=== PATIENT | male | born 1950 | race Caucasian/White ===

== ENCOUNTER 2022-08-29 06:05 | Day surgery (SDC) | payer MEDICARE, SELFPAY ==
[2022-08-18 09:18] VITALS: BMI 26.6
[2022-08-29 06:20] VITALS: BP 140/80; PULSE 58; RESP 16; TEMP 36.4; O2SAT 100
--- NOTE | 2022-08-29 07:15 | PM.HPGS ---
History of Present Illness History of Present Illness Consent: Risks, benefits, and alternatives have been discussed and questions answered. Patient agrees to proceed with procedure. Chief complaint: Neoplasm Screening Narrative: Rohit Oglesby is a 72 year old male Presents for screening colonoscopy. Patient reports his current weight appetite and bowel movements are normal. Patient denies abdominal pain. He has had no bleeding. Family history noncontributory. Patient had previous colonoscopy 10 years ago that was unremarkable. Review of Systems Review of Systems: Review of systems noncontributory. [facility] Family History Family History Sibling Patient's brother is in good health Social History Social History Smoking status: Never smoker Second hand tobacco smoke exposure: No Alcohol intake: current Drinks per week: 4 Alcohol use details: A FEW BEERS ON WEEKEND, OCCASIONAL GLASS OF WINE Substance use: never Substance use type: does not use Living arrangements: with family Spiritual care concerns: No Meds Home Medications and Allergies Home Medications Medication Instructions Recorded Confirmed Type aspirin 81 mg tablet,delayed 81 mg PO DAILY 07/05/19 08/29/22 History release (Adult Low Dose Aspirin) multivitamin (Multiple Vitamins 1 tablet PO DAILY 07/05/19 08/29/22 History tablet) sildenafil 50 mg tablet 50 mg PO DAILY PRN sexual activity 01/21/22 08/29/22 Rx #9 tabs sodium,potassium,mag sulfates 17.5 See Rx Instructions PO .COMPLEX 06/21/22 08/29/22 Rx gram-3.13 gram-1.6 gram oral soln #354 mL (Suprep Bowel Prep Kit) Allergies Allergy/AdvReac Type Severity Reaction Status Date / Time No Known Allergies Allergy Verified 08/29/22 06:32 Exam Narrative: Physical exam reveals patient to be alert. Vital signs stable. HEENT exam is unremarkable. Patient is anicteric. Lungs are clear to auscultation and percussion. Heart is without murmur or extra sounds. Abdomen bowel sounds are present soft nontender with no organomegaly. Digital external rectal exam is normal. Assessment and Plan Assessment and plan (1) Encounter for screening colonoscopy: Code(s): Z12.11 - Encounter for screening for malignant neoplasm of colon Status: Acute Assessment and Plan: Patient presents for screening colonoscopy. Further recommendations may be given after endoscopy.
--- NOTE | 2022-08-29 07:34 | P.PNAN_ITS ---
Anes - Initial Pre Proc Eval Procedure: Operation Date: 08/29/22 07:30 Proposed Procedures p Screening Colonoscopy - Sal Holguin MD Date/Time: 08/29/22 07:34 Surgeon: Sal Holguin MD Pre Op Diagnosis: Neoplasm Screening Patient Data Age: 72 Gender: M Height: 1.75 m Weight: 82.7 kg Allergies Allergy/AdvReac Type Severity Reaction Status Date / Time No Known Allergies Allergy Verified 08/29/22 06:32 Home Medications Medication Instructions Recorded Confirmed Type aspirin 81 mg tablet,delayed 81 mg PO DAILY 07/05/19 08/29/22 History release (Adult Low Dose Aspirin) multivitamin (Multiple Vitamins 1 tablet PO DAILY 07/05/19 08/29/22 History tablet) sildenafil 50 mg tablet 50 mg PO DAILY PRN sexual activity 01/21/22 08/29/22 Rx #9 tabs sodium,potassium,mag sulfates 17.5 See Rx Instructions PO .COMPLEX 06/21/22 08/29/22 Rx gram-3.13 gram-1.6 gram oral soln #354 mL (Suprep Bowel Prep Kit) Patient hx anesthesia problems: none Family hx anesthesia problems: none Results Review: All pre-operative results and documents have been reviewed as part of the pre- operative evaluation. [facility] Family History Family History Sibling Patient's brother is in good health Social History Social History Smoking status: Never smoker Second hand tobacco smoke exposure: No Alcohol intake: current Drinks per week: 4 Alcohol use details: A FEW BEERS ON WEEKEND, OCCASIONAL GLASS OF WINE Substance use: never Substance use type: does not use Living arrangements: with family Spiritual care concerns: No Anes - Eval Final PreProcedure Day of Procedure 08/29/22 07:34 Patient weight: overweight Heart: regular rate and rhythm Lungs: clear to auscultation and normal air movement Airway: Mallampati scale class II Neurological: alert and oriented Last oral intake: >/= 8 hours ASA classification: II Emergent: no Anesthetic plan: proceed Anesthesia type and monitoring: general GIVS Results Review: All pre-operative results and documents have been reviewed as part of the pre-operative evaluation. Informed Consent: The patient's anesthetic plan and its attendant risks and benefits were discussed with the patient/family/POA. Questions were solicited and answers provided to the satisfaction of the patient/family/POA.
[2022-08-29] MEDS: LACTATED RINGERS 1,000 ML 150 ML IV CONT (07:36)
[2022-08-29 08:02] VITALS: BP 120/67; PULSE 53; RESP 16; O2SAT 100
[2022-08-29 08:12] VITALS: BP 119/82; PULSE 50; RESP 16; O2SAT 100
[2022-08-29 08:24] VITALS: BP 129/71; PULSE 57; RESP 18; O2SAT 100
--- NOTE | 2022-08-29 11:58 | WPDANESPN ---
Anes - Prog Note Post-Op Date/Time: 08/29/22 11:58 Cardiovascular status: normal Respiratory status: normal Airway patency: baseline Mental status: baseline Post-Op hydration status: normal Vital Signs: Last Vital Signs Temp 36.4 C L 08/29/22 06:20 Pulse 57 L 08/29/22 08:24 Resp 18 08/29/22 08:24 BP 129/71 08/29/22 08:24 Pulse Ox 100 08/29/22 08:24 O2 Del Method Room Air 08/29/22 08:24 Pain Score (VAS): 0 I/O: Intake & Output 08/28/22 08/29/22 08/29/22 23:59 07:59 15:59 Intake Total 200 0 Balance 200 0 Post-procedural complaints: none Patient Feedback: Patient satisfied with anesthetic care.
== END 2022-08-29 08:50 | disposition home or self-care (01) ==
PROVIDERS: PCP Internal Medicine; Visit Provider Internal Medicine Gastroenterology
PROC: 0DJD8ZZ Inspection of Lower Intestinal Tract, Via Natural or Artificial Opening Endoscopic (ICD-10-PCS; CPT 45378; principal; 2022-08-29 07:30)
DX: Z12.11 Encounter for screening for malignant neoplasm of colon (principal)
CPT/HCPCS: 45378